=== PATIENT | female | born 1955 | race Caucasian/White ===

== ENCOUNTER 2024-11-04 12:30 | Observation (INO) ==
[2024-11-04] MEDS ORDERED: HYDROmorphone 0.5 MG/0.5 ML SYRINGE IV PRN ×2 (13:16→18:20)
[2024-11-04] MEDS: HYDROmorphone 0.5 MG/0.5 ML SYRINGE IV ONE (13:33)
[2024-11-04] MEDS: ONDANSETRON 4 MG/2 ML VIAL IV PRN (14:27)
[2024-11-04] MEDS ORDERED: MIDAZOLAM 2 MG/2 ML VIAL ONE (17:08)
[2024-11-04] MEDS ORDERED: GLYCOPYRROLATE 0.2 MG/ML VIAL IV ONE (17:21)
[2024-11-04] MEDS ORDERED: LIDOCAINE 2% PF 5 ML VIAL ONE (17:21)
[2024-11-04] MEDS ORDERED: MAGNESIUM SULFATE 2 GM/50 ML BAG IV ONE (17:21)
[2024-11-04] MEDS ORDERED: FAMOTIDINE/PF 20 MG/2 ML VIAL IV ONE (17:21)
[2024-11-04] MEDS ORDERED: ONDANSETRON 4 MG/2 ML VIAL ONE (17:21)
[2024-11-04] MEDS ORDERED: DEXAMETHASONE 10 MG/ML VIAL ONE (17:21)
[2024-11-04] MEDS ORDERED: fentaNYL 100 MCG/2 ML VIAL ONE (17:39)
[2024-11-04] MEDS ORDERED: PROPOFOL 200 MG/20 ML VIAL IV ONE (17:39)
[2024-11-04] MEDS: ceFAZolin 2 GM in DEXTROSE 5% IN WATER 50 ML IV SCH (17:58)
[2024-11-04] MEDS ORDERED: BENZOCAINE/MENTHOL 1 LOZENGE PO PRN (18:20)
[2024-11-04] MEDS ORDERED: LACTATED RINGERS 250 ML IV PRN (18:20)
[2024-11-04] MEDS ORDERED: ONDANSETRON 4 MG/2 ML VIAL IV PRN ×2 (18:20→19:09)
[2024-11-04] MEDS ORDERED: fentaNYL 100 MCG/2 ML VIAL IV PRN (18:20)
[2024-11-04] MEDS ORDERED: NALOXONE HCL 0.4 MG/ML VIAL IV PRN (18:20)
[2024-11-04] MEDS ORDERED: IPRATROPIUM/ALBUTEROL 3 ML AMPUL.NEB NEB PRN (18:20)
[2024-11-04] MEDS ORDERED: METHOCARBAMOL 1,000 MG/10 ML VIAL IV PRN (18:20)
[2024-11-04] MEDS ORDERED: FLUMAZENIL 0.1 MG/ML ML IV PRN (18:20)
[2024-11-04] MEDS: GENTAMICIN SULFATE 200 MG in 0.9 % SODIUM CHLORIDE 250 ML IV SCH (18:40)
[2024-11-04] MEDS: IOVERSOL 50 ML VIAL IJ ONE (18:44)
[2024-11-04] MEDS: LIDOCAINE 2% URO-JET 10 ML JEL.PF.APP UR ONE (19:06)
[2024-11-04] MEDS ORDERED: MAGNESIUM HYDROXIDE 30 ML ORAL.SUSP PO PRN (19:09)
[2024-11-04] MEDS ORDERED: BISACODYL 10 MG SUPP.RECT PR PRN (19:09)
[2024-11-04] MEDS ORDERED: OXYBUTYNIN CHLORIDE 5 MG TABLET PO PRN ×2 (19:10→19:39)
[2024-11-04] MEDS: ACETAMINOPHEN 1,000 MG/100 ML BAG IV ONE (19:18)
[2024-11-04] MEDS ORDERED: ALBUTEROL SULFATE 60 PUFF INHALER INH PRN (19:40)
[2024-11-04] MEDS: DEXTROSE 5%-1/2NS W/20MEQ KCL 1,000 ML IV SCH (20:00)
[2024-11-04] MEDS: LACTATED RINGERS 1,000 ML IV SCH (20:00)
[2024-11-04] MEDS: 0.9 % SODIUM CHLORIDE 10 ML SYRINGE IV SCH (21:40)
[2024-11-04] MEDS: SULFAMETHOXAZOLE/TRIMETHOPRIM 1 TABLET PO SCH (21:40)
[2024-11-04] MEDS: CYCLOBENZAPRINE 10 MG TABLET PO SCH (21:40)
[2024-11-05 06:03] LABS: Hematocrit 39.0 % (34.1-44.9); Hemoglobin 13.1 g/dL (11.2-15.7); Mean Corpuscular HGB Conc 33.6 g/dL (31.0-36.0); Platelet Count 264 K/mcL (140-440); RBC 4.16 M/mcL (3.59-5.38); WBC 9.7 K/mcL (4.5-11.0)
[2024-11-05 06:27] LABS: Anion Gap 10.0 (8.0-16.0); Blood Urea Nitrogen 10 mg/dL (8-23); Calcium 8.3 mg/dL (8.6-10.4); Carbon Dioxide 20 mmol/L (22-30); Chloride 103 mmol/L (96-108); Glucose 141 mg/dL (70-105); Potassium 4.2 mmol/L (3.3-5.1); Sodium 133 mmol/L (133-145)
[2024-11-05 07:52] VITALS: TEMP 97.5; O2SAT 98
[2024-11-05] MEDS: FLUTICASONE PROPIONATE SPRAY.NAS NS SCH (09:05)
[2024-11-05] MEDS: LORATADINE 10 MG TABLET PO SCH (09:05)
== END 2024-11-05 11:25 | disposition home or self-care (01) ==
LOC: MEDSUR 12:30 → ED 12:30 → MEDSUR 14:25
PROVIDERS: ADMIT Urology; ATTEND Urology